=== PATIENT | female | born 1960 | race African-American/Black ===

== ENCOUNTER 2021-03-30 01:28 | Emergency (ER) | payer MEDICAID ==
[~2021-03-30] VITALS: Ht 165.1 cm; Wt 102.5 kg
[2021-03-30 01:45] VITALS: BP 133/64
--- NOTE | 2021-03-30 01:50 | NUR ---
RECEIVED PT IN BED 3 REQUESTING RX FOR PERCOCET. PT HAS RX FOR 120 TABS BUT PHARMACY DOES NOT HAVE THIS AMOUNT AVailable AND PT IS REQUESTING RX FOR 12 TABS
[2021-03-30] MEDS ORDERED: ACET-5636 PO (02:01)
[2021-03-30] MEDS ORDERED: NALO4SPR NS (02:01)
--- NOTE | 2021-03-30 02:02 | NUR ---
Patient discharged with v/s stable. Written and verbal after care instructions given and explained. Patient alert, oriented and verbalized understanding of instructions. Ambulatory with steady gait. All questions addressed prior to discharge. ID band removed. Patient advised to follow up with PMD. Rx of PERCOCET given. Patient educated on indication of medication including possible reaction and side effects. Opportunity to ask questions provided and answered.
== END 2021-03-30 02:02 | disposition home or self-care (01) ==
LOC: MED 01:28
DX: G89.29 Other chronic pain (principal); M54.9 Dorsalgia, unspecified
CPT/HCPCS: 99283